=== PATIENT | female | born 1955 | race Caucasian/White ===

== ENCOUNTER 2019-02-18 08:01 | Inpatient (IN) | payer OTHER ==
[2019-02-18] MEDS ORDERED: ACETAMINOPHEN 1000MG/100ML IV 100 ML (09:25)
[2019-02-18] MEDS: ONDANSETRON 4 MG INJ IV (09:28)
[2019-02-18] MEDS: oxyCODONE (CR) 10 MG TAB [oxyCONTIN] PO (09:29)
[2019-02-18] MEDS: DEXAMETHASONE 4 MG/ML 1 ML INJ IV (09:29)
[2019-02-18] MEDS: LANSOPRAZOLE 30 MG CAP PO (09:29)
[2019-02-18] MEDS: ACETAMINOPHEN 1000MG/100ML IV 100 ML IVPB (09:30)
[2019-02-18] MEDS ORDERED: MIDAZOLAM 1 MG/ML 2 ML INJ (09:50)
[2019-02-18] MEDS ORDERED: EPHEDrine 25 MG/5 ML SYG (09:50)
[2019-02-18] MEDS ORDERED: PROPOFOL 100 ML (09:50)
[2019-02-18] MEDS ORDERED: morphine SULFATE/PF (10 MG/10 ML) INJ (09:50)
[2019-02-18] MEDS ORDERED: CEFAZOLIN 1 GM INJ (09:50)
[2019-02-18] MEDS ORDERED: ROPIVACAINE 0.5 % 30 ML VIAL (09:51)
[2019-02-18] MEDS ORDERED: LACTATED RINGER'S 1,000 ML IV (10:30)
[2019-02-18] MEDS: TRANEXAMIC ACID 1GM/100ML(PMX) 100 ML PRE-OP X1 IVPB (12:00)
[2019-02-18] MEDS: CEFAZOLIN 1 GM/50 ML (PMX) 50 ML IVPB (12:09)
[2019-02-18] MEDS ORDERED: TRANEXAMIC ACID 1GM/100ML(PMX) 200 ML (12:25)
[2019-02-18] MEDS ORDERED: DEXAMETHASONE 4 MG/ML 5 ML INJ (12:45)
[2019-02-18] MEDS ORDERED: METOCLOPRAMIDE 10 MG INJ (12:45)
[2019-02-18] MEDS ORDERED: ONDANSETRON 4 MG INJ (12:45)
[2019-02-18] MEDS ORDERED: KETOROLAC 30 MG INJ (12:46)
[2019-02-18] MEDS ORDERED: ONDANSETRON 4 MG INJ IV ×2 (13:00)
[2019-02-18] MEDS ORDERED: NALBUPHINE HCL (10 MG/1 ML) INJ IV (13:00)
[2019-02-18] MEDS ORDERED: FENTAnyl 50 MCG/ML VIAL IV ×2 (13:00)
[2019-02-18] MEDS ORDERED: ACETAMINOPHEN 500 MG TAB PO (13:00)
[2019-02-18] MEDS ORDERED: ALBUMIN HUMAN 5% 250 ML IV (13:00)
[2019-02-18] MEDS ORDERED: DIPHENHYDRAMINE 50 MG INJ IV ×2 (13:00)
[2019-02-18] MEDS ORDERED: HYDROCODONE/APAP (5/325) TAB PO (13:00)
[2019-02-18] MEDS ORDERED: MEPERIDINE 25 MG INJ IV (13:00)
[2019-02-18] MEDS ORDERED: KETOROLAC 30 MG INJ IV (13:00)
[2019-02-18] MEDS ORDERED: HYDROmorphONE 1 MG/5 ML IV SYRINGE IV ×2 (13:00)
[2019-02-18] MEDS ORDERED: morphine 2 MG INJ IV ×2 (13:00)
[2019-02-18] MEDS ORDERED: METOCLOPRAMIDE 10 MG INJ IV (13:00)
[2019-02-18] MEDS ORDERED: NALOXONE (0.4 MG/ML) INJ IV ×2 (13:00→14:30)
[2019-02-18] MEDS ORDERED: HYDROmorphONE 0.5 MG/0.5 ML SYG IV ×2 (13:00)
[2019-02-18] MEDS ORDERED: LABETALOL HCL 20MG INJ IV (13:00)
[2019-02-18] MEDS ORDERED: EPHEDrine 25 MG/5 ML SYG IV (13:00)
[2019-02-18] MEDS ORDERED: OXYCODONE/ACETAMINOPHEN (5/325) TAB PO (13:00)
[2019-02-18] MEDS ORDERED: ROCURONIUM 50 MG INJ (13:04)
[2019-02-18] MEDS ORDERED: SUCCINYLCHOLINE CHLORIDE 100 MG/5 ML SYG IV (13:04)
[2019-02-18] MEDS: POLYMYXIN B 500000 UNIT INJ (13:04)
[2019-02-18] MEDS: BACITRACIN 50000 UNITS INJ IRR (13:04)
[2019-02-18] MEDS: TRANEXAMIC ACID 1GM/100ML(PMX) 100 ML INTRA-OP X1 IVPB (13:15)
[2019-02-18] MEDS ORDERED: NEOSTIGMINE 3 MG/3 ML SYRINGE (13:42)
[2019-02-18] MEDS ORDERED: GLYCOPYRROLATE 0.4 MG INJ (13:42)
[2019-02-18] MEDS ORDERED: NACL 0.9% 3 ML SYG IV (14:30)
[2019-02-18] MEDS ORDERED: BISACODYL 10 MG SUPP PR (14:30)
[2019-02-18] MEDS ORDERED: KETOROLAC 15 MG INJ IV (14:30)
[2019-02-18] MEDS ORDERED: MAGNESIUM HYDROXIDE 30ML CUP PO (14:30)
[2019-02-18] MEDS ORDERED: SENNA/DOCUSATE NA (8.6MG/50MG) TAB PO (14:30)
[2019-02-18] MEDS ORDERED: NA PHOSPHATE/BIPHOS 133 ML ENEMA PR (14:30)
[2019-02-18] MEDS: DOCUSATE SODIUM 100 MG CAP PO (14:32)
[2019-02-18] MEDS: CEFAZOLIN 2 GM/50 ML (PMX) 50 ML IVPB ×2 (14:54→23:44)
[2019-02-18] MEDS ORDERED: HIP PAIN COCKTAIL VANCO INJ (17:30)
[2019-02-18] MEDS: GABAPENTIN 100 MG CAP PO (20:29)
[2019-02-18] MEDS: MONTELUKAST 10 MG TAB PO (20:29)
[2019-02-19 05:07] LABS: ADD MAN DIFF? NO; BASOPHILS % 0.1 % (0.0-2.0); HEMATOCRIT 29.3 % (37.0-47.0); HEMOGLOBIN 9.7 g/dl (12.0-16.0); LYMPHOCYTES # 1.6 10^3/ul (0.8-2.9); LYMPHOCYTES % 10.5 % (15.0-51.0); MEAN CORPUSCULAR HEMOGLOBIN 28.3 pg (29.0-33.0); MEAN CORPUSCULAR HGB CONC 33.1 g/dl (32.0-37.0); MEAN CORPUSCULAR VOLUME 85.4 fl (82.0-101.0); MEAN PLATELET VOLUME 11.3 fl (7.4-10.4); MONOCYTE # 0.5 10^3/ul (0.3-0.9); MONOCYTES % 3.1 % (0.0-11.0); NEUTROPHIL # 12.9 10^3/ul (1.6-7.5); NEUTROPHILS % 85.9 % (39.0-77.0); PLATELET COUNT 279 10^3/UL (140-415); RED BLOOD COUNT 3.43 10^6/ul (4.20-5.40); RED CELL DISTRIBUTION WIDTH 14.4 % (11.5-14.5)
[2019-02-19 05:33] LABS: ANION GAP 10 (5-13); BLOOD UREA NITROGEN 19 mg/dl (7-20); CALCIUM 8.8 mg/dl (8.4-10.2); CARBON DIOXIDE 29 mmol/L (21-31); CHLORIDE 101 mmol/L (97-110); CREATININE 0.92 mg/dl (0.44-1.00); Estimated GFR > 60 mL/min (>60); GLUCOSE 135 mg/dl (70-220); POTASSIUM 3.2 mmol/L (3.5-5.1); SODIUM 140 mmol/L (135-144)
[2019-02-19] MEDS: CEFAZOLIN 2 GM/50 ML (PMX) 50 ML IVPB (06:24)
[2019-02-19] MEDS: HYDROCHLOROTHIAZIDE 25 MG TAB PO (09:00)
[2019-02-19] MEDS: ASPIRIN (EC) 81 MG TAB PO ×2 (09:08→20:35)
[2019-02-19] MEDS: DOCUSATE SODIUM 100 MG CAP PO ×2 (09:08→20:35)
[2019-02-19] MEDS: CELECOXIB 100 MG CAP PO ×2 (09:08→20:35)
[2019-02-19] MEDS: PANTOPRAZOLE (EC) 40 MG TAB PO (09:08)
[2019-02-19] MEDS: GABAPENTIN 100 MG CAP PO ×3 (09:08→20:35)
[2019-02-19] MEDS: POTASSIUM CHLORIDE (SR) 20 MEQ TAB PO (10:45)
[2019-02-19] MEDS ORDERED: ONDANSETRON 4 MG INJ IV (14:30)
[2019-02-19] MEDS: oxyCODONE 5 MG TAB PO (19:24)
[2019-02-19] MEDS: MONTELUKAST 10 MG TAB PO (20:34)
[2019-02-20] MEDS ORDERED: PANTOPRAZOLE (EC) 40 MG TAB PO (06:00)
== END 2019-02-19 21:00 | disposition home health service (06) | DRG 470 ==
LOC: REC 08:01 → MS1 15:55
PROC: 0SRD069 Replacement of Left Knee Joint with Oxidized Zirconium on Polyethylene Synthetic Substitute, Cemented, Open Approach (ICD-10-PCS; principal; 2019-02-18 10:30)
DX: M17.12 Unilateral primary osteoarthritis, left knee (principal); I10 Essential (primary) hypertension; E78.5 Hyperlipidemia, unspecified
CPT/HCPCS: 73560; 80048; 85025; 86850; 86900; 86901; 87081; 88304; 88311; 97116; 97161; 97530